=== PATIENT | male | born 1985 | race African-American/Black ===

== ENCOUNTER 2019-11-15 23:07 | Inpatient (IN) | payer SELFPAY ==
[~2019-11-15] VITALS: Ht 185.4 cm; Wt 90.7 kg
[2019-11-15 23:10] VITALS: BP 121/60
[2019-11-15] MEDS ORDERED: propofoL 1,000mg/100ml 100 ML IV ONE (23:36)
[2019-11-15] MEDS ORDERED: levETIRAcetam 500mg/NS100ml 110 ML IV ONE (23:45)
[2019-11-15] MEDS ORDERED: levETIRAcetam 1,000mg/NS100ml 100 ML IVPB ONE (23:45)
[2019-11-15] MEDS ORDERED: propofoL 1,000mg/100ml 100 ML IV SCH (23:45)
[2019-11-16] VITALS (24 sets, daily range): BP systolic 91–148; BP diastolic 51–107
[2019-11-16 00:16] LABS: HEMATOCRIT 42.4 % (42.0-52.0); HEMOGLOBIN 14.8 G/DL (14.2-18.0); MEAN CORPUSCULAR VOLUME 86 FL (80-99); PLATELET COUNT 256 K/UL (150-450); RED CELL DISTRIBUTION WIDTH 11.6 % (11.6-14.8); WHITE BLOOD COUNT 11.6 K/UL (4.8-10.8)
--- NOTE | 2019-11-16 00:22 | Diagnostic Imaging Report ---
Chest 1 view History: Shortness of breath Findings: ET tube tip is within 3 cm of the buffy. Right lower lung infiltrate is seen. Minimal left lower lung infiltrate. Bones are normal. Heart size is normal. Impression: 1. Satisfactory position of the ET tube. 2. Right lower lung infiltrate, pneumonia.
[2019-11-16 00:26] LABS: ANION GAP 12 mmol/L (5-15); BLOOD UREA NITROGEN 13 mg/dL (7-18); CALCIUM 8.3 MG/DL (8.5-10.1); CARBON DIOXIDE 26 MMOL/L (21-32); CHLORIDE 100 MMOL/L (98-107); CREATININE 1.7 MG/DL (0.55-1.30); POTASSIUM 3.5 MMOL/L (3.5-5.1); SODIUM 138 MMOL/L (136-145)
[2019-11-16 00:29] LABS: APPEARANCE,URINE CLEAR; BILIRUBIN, URINE NEGATIVE (NEGATIVE); COLOR,URINE PALE YELLOW; GLUCOSE, URINE (UA) 3+ (NEGATIVE); KETONES,URINE NEGATIVE (NEGATIVE); LEUKOCYTE ESTERASE ,URINE NEGATIVE (NEGATIVE); NITRITE,URINE NEGATIVE (NEGATIVE); PH,URINE 6 (4.5-8.0); PROTEIN,URINE 3+ (NEGATIVE); UROBILINOGEN,URINE NORMAL MG/DL (0.0-1.0)
--- NOTE | 2019-11-16 00:30 | Emergency Room Report ---
History of Present Illness General Chief Complaint: Seizure Source: Patient Present Illness HPI Disclaimer: Please note that this report is being documented using [employer] technology. This can lead to erroneous entry secondary to incorrect interpretation by the dictating instrument. HPI: Approximately 35-year-old male presented by EMS from the street for possible seizure. Patient has unknown history. Apparently was found in a vehicle having seizure-like activity. He was postictal on EMS arrival. On further history from the mother and family patient has a history of HIV unclear if he is on medication. He has no known history of seizures. PMH: Unknown Allergies: Coded Allergies: UNABLE TO ASSESS (Unverified , 11/15/19) COVID-19 Screening Contact w/high risk pt: No Recent Travel to affected area: No Experienced COVID-19 symptoms?: No COVID-19 Testing performed MOBILE QA TESTER: No Nursing Documentation-PMH Past Medical History: No Stated History Review of Systems All Other Systems: limited - Limited as patient arrived altered Physical Exam Vital Signs Date Time Temp Pulse Resp B/P (MAP) Pulse Ox O2 Delivery O2 Flow Rate FiO2 11/15/19 23:08 98.1 106 20 121/60 (80) 98 Room Air Sp02 EP Interpretation: reviewed, abnormal General Appearance: Postictal, Stupor Head: normocephalic, atraumatic Eyes: bilateral eye PERRL, bilateral eye EOMI ENT: moist mucus membranes, other - Anterior tongue laceration noted Neck: full range of motion, supple Respiratory: no rhonchi, no retraction, no accessory muscle use, no wheezing, other - Patient arrived with sonorous respirations Cardiovascular #1: normal peripheral pulses, regular rate, rhythm, no murmur, tachycardia Gastrointestinal: non tender, soft, non-distended, no guarding Neurologic: other - Patient obtunded on arrival, nonverbal, withdraws to pain Skin: normal color, warm/dry Procedures Critical Care Time Critical Care Time Critical care is made on the patient due to presentation with altered mental status, respiratory failure requiring my acute intervention. Critical care time is 40 minutes and excludes procedures Intubation Intubation : Consent: Emergent Intubation Method: orotracheal Tube Size (cm): 7.5 Medications: Succinylcholine Breath Sounds after Intubation: equal Intubation Complications: no complications Post Intubation Xray: Yes Progress/Xray Impression: appropriate position Attempts: Other - 2 Patient Tolerated: Well Complications: None Progress My first attempt with a glide scope was unsuccessful as I had poor visualization. My second attempt was with a MAC 3 blade and a bougie which was successful. Medical Decision Making Diagnostic Impression: Primary Impression: Altered mental status Additional Impressions: Acute respiratory failure Polysubstance abuse Opioid overdose Aspiration pneumonia Seizure-like activity ER Course MDM: Differential diagnosis included but not limited to recurrent seizure, status epilepticus, respiratory failure, intracranial hemorrhage, substance abuse to name a few Clinical course-IV, cardiac monitoring, pulse oximetry, patient did arrive by EMS. Normal glucose prior to arrival. Patient did appear postictal and EMS reported witnessed seizure activity. Unfortunately we do not have history on the patient. After being placed on the gurney. Patient again appeared postictal he is placed on oxygen. He was noted to be hypoxic. We did attempt jaw thrust and chin lift maneuvers which did improve his oxygenation however patient was clenching his jaw and his tongue appeared to be obstructing his airway. He was very difficult to bag and oxygenate. At this time I decided to intubate. While intubating I did note patient had a large tongue. Probably causing obstruction of his airway. He was intubated by me. CT scan of the brain ordered, laboratory studies ordered drug screen ordered. Urine drug screen was positive for cocaine and marijuana. CT scan of the brain was normal. Laboratory studies otherwise demonstrate a mildly elevated lactate, mild leukocytosis. Chest x-ray showed possible right lower lobe infiltrate I suspect possible aspiration pneumonia versus today acquired pneumonia. Patient was afebrile. He was placed on a propofol drip however he remained unresponsive. I had considered opioid overdose in the differential and patient had not been given Narcan prior to arrival to the ER or initially in the ER. I decided to give 1 dose of naloxone which did improve patient's mental status he did wake up and became more alert. Patient was given IV antibiotics for possible right lower lobe pneumonia. He will still be admitted to the ICU. I discussed the case with Dr. Prieto, hospitalist commissioned defence force officer. It appears patient may have been under the influence of multiple substances leading to his altered state, it is unclear if he actually had seizures or this was intoxication. I have a low suspicion for serious traumatic injury at this time as patient had no signs of serious trauma on exam. Labs - Laboratory Tests Test 11/15/19 23:18 11/15/19 23:45 11/16/19 00:10 11/16/19 01:50 White Blood Count 11.6 K/UL (4.8-10.8) H Red Blood Count 4.90 M/UL (4.70-6.10) Hemoglobin 14.8 G/DL (14.2-18.0) Hematocrit 42.4 % (42.0-52.0) Mean Corpuscular Volume 86 FL (80-99) Mean Corpuscular Hemoglobin 30.1 PG (27.0-31.0) Mean Corpuscular Hemoglobin Concent 34.8 G/DL (32.0-36.0) Red Cell Distribution Width 11.6 % (11.6-14.8) Platelet Count 256 K/UL (150-450) Mean Platelet Volume 5.3 FL (6.5-10.1) L Neutrophils (%) (Auto) % (45.0-75.0) Lymphocytes (%) (Auto) % (20.0-45.0) Monocytes (%) (Auto) % (1.0-10.0) Eosinophils (%) (Auto) % (0.0-3.0) Basophils (%) (Auto) % (0.0-2.0) Differential Total Cells Counted 100 Neutrophils % (Manual) 29 % (45-75) L Lymphocytes % (Manual) 54 % (20-45) H Monocytes % (Manual) 6 % (1-10) Eosinophils % (Manual) 11 % (0-3) H Basophils % (Manual) 0 % (0-2) Band Neutrophils 0 % (0-8) Reactive Lymphocytes 1+ Platelet Estimate Adequate Platelet Morphology Normal Sodium Level 138 MMOL/L (136-145) Potassium Level 3.5 MMOL/L (3.5-5.1) Chloride Level 100 MMOL/L (98-107) Carbon Dioxide Level 26 MMOL/L (21-32) Anion Gap 12 mmol/L (5-15) Blood Urea Nitrogen 13 mg/dL (7-18) Creatinine 1.7 MG/DL (0.55-1.30) H Estimated Glomerular Filtration Rate 55.9 mL/min (>60) Glucose Level 288 MG/DL (74-106) H Calcium Level 8.3 MG/DL (8.5-10.1) L Total Bilirubin 0.2 MG/DL (0.2-1.0) Aspartate Amino Transferase (AST) 59 U/L (15-37) H Alanine Aminotransferase (ALT) 38 U/L (12-78) Alkaline Phosphatase 113 U/L (46-116) Total Protein 8.0 G/DL (6.4-8.2) Albumin 3.4 G/DL (3.4-5.0) Globulin 4.6 g/dL Albumin/Globulin Ratio 0.7 (1.0-2.7) L Serum Alcohol < 3 mg/dL Lactic Acid Level 3.40 mmol/L (0.4-2.0) H 0.80 mmol/L (0.66-2.22) Urine Color Pale yellow Urine Appearance Clear Urine pH 6 (4.5-8.0) Urine Specific [place] 1.020 (1.005-1.035) Urine Protein 3+ (NEGATIVE) H Urine Glucose (UA) 3+ (NEGATIVE) H Urine Ketones Negative (NEGATIVE) Urine Blood 3+ (NEGATIVE) H Urine Nitrite Negative (NEGATIVE) Urine Bilirubin Negative (NEGATIVE) Urine Urobilinogen Normal MG/DL (0.0-1.0) Urine Leukocyte Esterase Negative (NEGATIVE) Urine RBC 5-10 /HPF (0 - 0) H Urine WBC 2-4 /HPF (0 - 0) Urine Squamous Epithelial Cells Occasional /LPF Urine Bacteria Few /HPF (NONE) Urine Opiates Screen Negative (NEGATIVE) Urine Barbiturates Screen Negative (NEGATIVE) Phencyclidine (PCP) Screen Negative (NEGATIVE) Urine Amphetamines Screen Negative (NEGATIVE) Urine Benzodiazepines Screen Negative (NEGATIVE) Urine Cocaine Screen Positive (NEGATIVE) H Urine Marijuana (THC) Screen Positive (NEGATIVE) H On reevaluation: Patient more alert and oriented and did require continued sedation in the ER Plan-admission to the ICU EKG Diagnostic Results Rate: tachycardiac Rhythm: other - Sinus tachycardia ST Segments: no acute changes Other Impression sinus tachycardia Rhythm Strip Diag. Results EP Interpretation: yes Rate: 110 Rhythm: other - sinus tachycardia Chest X-Ray Diagnostic Results Chest X-Ray Diagnostic Results : Chest X-Ray Ordered: Yes Indication: Shortness of Breath EP Interpretation: Yes Interpretation: no consolidation, no effusion, no pneumothorax, other - ET tube in appropriate position Impression: No acute disease Electronically Signed by: Michele Lawrence MD Last Vital Signs Date Time Temp Pulse Resp B/P (MAP) Pulse Ox O2 Delivery O2 Flow Rate FiO2 11/15/19 23:08 98.1 106 20 121/60 (80) 98 Room Air Disposition: ADMITTED INPATIENT Condition: Critical Scripts Unable to Obtain Active Prescriptions or Reported Meds Referrals: NOT CHOSEN IPA/,REFERRING (PCP) Michele Lawrence M.D. Nov 16, 2019 00:30
[2019-11-16 00:31] LABS: ALANINE AMINOTRANSFERASE 38 U/L (12-78); ALBUMIN 3.4 G/DL (3.4-5.0); ALBUMIN/GLOBULIN RATIO 0.7 (1.0-2.7); ALKALINE PHOSPHATASE 113 U/L (46-116); ASPARTATE AMINO TRANSFERASE 59 U/L (15-37); BILIRUBIN,TOTAL 0.2 MG/DL (0.2-1.0)
[2019-11-16] MEDS ORDERED: Piperacillin/Tazobactam 4.5 GM in NS 110 ML IVPB ONE (01:15)
--- NOTE | 2019-11-16 01:54 | Diagnostic Imaging Report ---
Axial noncontrast head CT History: Axial noncontrast head CT. CTDI is 53.4 mGy and DLP is 1045.5 mGy-cm. Technique more: One or more of the following dose reduction techniques were used: automated exposure control, adjustment of the mA and/or kV according to patient size, use of iterative reconstruction technique. Comparison: None Findings: Rosales-white matter differentiation is seen to be normal. Ventricles, extra-axial CSF spaces are unremarkable. No acute intracranial hemorrhage mass-effect or edema is seen. Impression: 1. No acute intracranial finding.
[2019-11-16] MEDS ORDERED: Naloxone 0.4mg/ml Inj ONE (02:11)
[2019-11-16] MEDS ORDERED: Naloxone 1mg/ml 2ml IVP ONE (02:15)
[2019-11-16] MEDS ORDERED: Milk of Magnesia 30ml Ud ORAL PRN (02:45)
[2019-11-16] MEDS ORDERED: Naloxone 0.4mg/ml Inj IVP PRN ×2 (02:45→21:00)
[2019-11-16] MEDS ORDERED: Miralax 17gm pkt ORAL PRN (02:45)
[2019-11-16] MEDS ORDERED: LORazepam Inj 2mg/ml 1ml IV PRN ×2 (02:45→21:06)
[2019-11-16] MEDS ORDERED: fentaNYL 2500mcg/NS 250ml 250 ML IV SCH (08:00)
[2019-11-16 08:29] LABS: BASOPHILS % (AUTO) 0.8 % (0.0-2.0); EOSINOPHILS % (AUTO) 3.8 % (0.0-3.0); HEMATOCRIT 36.3 % (42.0-52.0); HEMOGLOBIN 12.5 G/DL (14.2-18.0); MEAN CORPUSCULAR VOLUME 85 FL (80-99); NEUTROPHILS % (AUTO) 66.4 % (45.0-75.0); PLATELET COUNT 241 K/UL (150-450); RED BLOOD COUNT 4.25 M/UL (4.70-6.10); RED CELL DISTRIBUTION WIDTH 11.4 % (11.6-14.8); WHITE BLOOD COUNT 7.3 K/UL (4.8-10.8)
[2019-11-16] MEDS: Heparin 5000 units/ml inj SUBQ SCH ×3 (08:42→21:00)
[2019-11-16] MEDS: Docusate 100mg cap ORAL SCH ×3 (08:42→21:00)
--- NOTE | 2019-11-16 08:56 | Consultation ---
Lurdes Chicas FIRE CONTROL TECHNICIAN B 11/16/19 0856: History of Present Illness General Date patient seen: Nov 16, 2019 Time patient seen: 07:30 Chief Complaint: seizure activity Referring physician: DR Raza Reason for Consultation: acute resp failure, s/p intubation Present Illness HPI 34 years old male with past medical history of HIV was brought by dressing room porter due to possible seizures. Patient was found in the vehicle having seizure-like activity. He was postictal on arrival of paramedics. According to his family patient had a history of IV but unclear he was on any medication no known history of seizures. Upon evaluation patient was afebrile tachycardic pulse oximetry laboratory work-up revealed mild leukocytosis WBC 11.6 stable hemoglobin hematocrit and platelet count. BUN 13, creatinine 1.7. Glucose 288. Lactic acid 3.4 repeated 0.8. AST 59 ALT 38 albumin 3.4. Stable electrolytes. Urinalysis revealed +3 protein +3 glucose no evidence of urinary tract infection urine toxicology screen was positive for cocaine and marijuana. Serum alcohol level was less than 3. CT of the head revealed no acute intracranial pathology. Patient was unresponsive and was intubated for airway protection from the second attempt. Patient received 1 dose of Narcan which somehow improved patient mental status . Chest x-ray after intubation confirmed placement of endotracheal tube and showed right lower lobe infiltrate, likely pneumonia . Patient pancultured ,started on empiric antibiotics . Patient subsequently admitted to ICU for further management Allergies: Coded Allergies: UNABLE TO ASSESS (Unverified , 11/15/19) Medication History Unable to Obtain Active Prescriptions or Reported Meds Patient History History Provided By: Significant Other, Medical Record, EMS Healthcare decision maker Resuscitation status Full code Advanced Directive on File Past Medical/Surgical History Past Medical/Surgical History: (1) HIV (human immunodeficiency virus infection) Review of Systems ROS Narrative unable due to altered mental status Physical Exam General Appearance: other - WD/WN AA male intubated, on vent AC 550-16- 32% PEEP5 Lines, tubes and drains: peripheral, endotracheal tube - in place, intact HEENT: normocephalic, atraumatic, anicteric Neck: supple Respiratory/Chest: lungs clear Abdomen: normal bowel sounds, non tender, soft Extremities: normal capillary refill, no edema Skin Exam: warm/dry, no diaphoresis Neurologic: other - sedated, no gross focal Musculoskeletal: normal muscle bulk Last 24 Hour Vital Signs Date Time Temp Pulse Resp B/P (MAP) Pulse Ox O2 Delivery O2 Flow Rate FiO2 11/16/19 07:00 86 16 96/60 (72) 100 11/16/19 07:00 16 96/60 Mechanical Ventilator 32 11/16/19 06:00 16 110/71 Mechanical Ventilator 32 11/16/19 06:00 83 16 110/71 (84) 100 11/16/19 05:41 88 11/16/19 05:30 Mechanical Ventilator 11/16/19 05:30 32 11/16/19 05:30 88 16 108/71 (83) 99 11/16/19 05:30 16 108/71 Mechanical Ventilator 32 11/16/19 05:15 98.3 90 20 121/79 (93) 99 11/16/19 05:15 16 121/79 Mechanical Ventilator 32 11/16/19 05:00 98.0 94 16 126/72 100 Mechanical Ventilator 32 11/16/19 05:00 98.0 94 16 126/76 98 Mechanical Ventilator 32 11/16/19 04:30 16 128/79 Mechanical Ventilator 32 11/16/19 04:00 98.0 86 17 104/67 100 Mechanical Ventilator 32 11/16/19 04:00 17 104/67 Mechanical Ventilator 32 11/16/19 03:25 85 16 90 11/16/19 03:00 98.2 85 17 105/71 100 Mechanical Ventilator 40 11/16/19 03:00 17 103/70 Mechanical Ventilator 40 11/16/19 02:30 16 111/77 Mechanical Ventilator 40 11/16/19 02:00 98.2 98 17 116/94 100 Mechanical Ventilator 40 11/16/19 01:30 17 116/94 Mechanical Ventilator 40 11/16/19 01:00 17 91/51 Mechanical Ventilator 50 11/16/19 01:00 98.2 110 17 91/51 100 Mechanical Ventilator 50 11/16/19 00:20 17 133/73 Mechanical Ventilator 90 11/16/19 00:00 98.2 115 17 130/78 98 Mechanical Ventilator 50 11/16/19 00:00 17 130/78 Mechanical Ventilator 50 11/15/19 23:45 11 134/77 Mechanical Ventilator 50 11/15/19 23:30 17 90 11/15/19 23:10 106 20 Room Air 11/15/19 23:10 98.1 115 20 121/60 98 Room Air 11/15/19 23:08 98.1 106 20 121/60 (80) 98 Room Air Intake and Output 11/15/19 11/16/19 19:00 07:00 Intake Total 84.575 ml Output Total 500 ml Balance -415.425 ml Intake IV Total 84.575 ml Output Urine Total 500 ml Laboratory Tests Test 11/15/19 23:18 11/15/19 23:45 11/16/19 00:10 11/16/19 01:50 White Blood Count 11.6 K/UL (4.8-10.8) H Red Blood Count 4.90 M/UL (4.70-6.10) Hemoglobin 14.8 G/DL (14.2-18.0) Hematocrit 42.4 % (42.0-52.0) Mean Corpuscular Volume 86 FL (80-99) Mean Corpuscular Hemoglobin 30.1 PG (27.0-31.0) Mean Corpuscular Hemoglobin Concent 34.8 G/DL (32.0-36.0) Red Cell Distribution Width 11.6 % (11.6-14.8) Platelet Count 256 K/UL (150-450) Mean Platelet Volume 5.3 FL (6.5-10.1) L Neutrophils (%) (Auto) % (45.0-75.0) Lymphocytes (%) (Auto) % (20.0-45.0) Monocytes (%) (Auto) % (1.0-10.0) Eosinophils (%) (Auto) % (0.0-3.0) Basophils (%) (Auto) % (0.0-2.0) Differential Total Cells Counted 100 Neutrophils % (Manual) 29 % (45-75) L Lymphocytes % (Manual) 54 % (20-45) H Monocytes % (Manual) 6 % (1-10) Eosinophils % (Manual) 11 % (0-3) H Basophils % (Manual) 0 % (0-2) Band Neutrophils 0 % (0-8) Reactive Lymphocytes 1+ Platelet Estimate Adequate Platelet Morphology Normal Sodium Level 138 MMOL/L (136-145) Potassium Level 3.5 MMOL/L (3.5-5.1) Chloride Level 100 MMOL/L (98-107) Carbon Dioxide Level 26 MMOL/L (21-32) Anion Gap 12 mmol/L (5-15) Blood Urea Nitrogen 13 mg/dL (7-18) Creatinine 1.7 MG/DL (0.55-1.30) H Estimat Glomerular Filtration Rate 55.9 mL/min (>60) Glucose Level 288 MG/DL (74-106) H Calcium Level 8.3 MG/DL (8.5-10.1) L Total Bilirubin 0.2 MG/DL (0.2-1.0) Aspartate Amino Transf (AST/SGOT) 59 U/L (15-37) H Alanine Aminotransferase (ALT/SGPT) 38 U/L (12-78) Alkaline Phosphatase 113 U/L (46-116) Total Protein 8.0 G/DL (6.4-8.2) Albumin 3.4 G/DL (3.4-5.0) Globulin 4.6 g/dL Albumin/Globulin Ratio 0.7 (1.0-2.7) L Serum Alcohol < 3 mg/dL Lactic Acid Level 3.40 mmol/L (0.4-2.0) H 0.80 mmol/L (0.66-2.22) Urine Color Pale yellow Urine Appearance Clear Urine pH 6 (4.5-8.0) Urine Specific [place] 1.020 (1.005-1.035) Urine Protein 3+ (NEGATIVE) H Urine Glucose (UA) 3+ (NEGATIVE) H Urine Ketones Negative (NEGATIVE) Urine Blood 3+ (NEGATIVE) H Urine Nitrite Negative (NEGATIVE) Urine Bilirubin Negative (NEGATIVE) Urine Urobilinogen Normal MG/DL (0.0-1.0) Urine Leukocyte Esterase Negative (NEGATIVE) Urine RBC 5-10 /HPF (0 - 0) H Urine WBC 2-4 /HPF (0 - 0) Urine Squamous Epithelial Cells Occasional /LPF Urine Bacteria Few /HPF (NONE) Urine Opiates Screen Negative (NEGATIVE) Urine Barbiturates Screen Negative (NEGATIVE) Phencyclidine (PCP) Screen Negative (NEGATIVE) Urine Amphetamines Screen Negative (NEGATIVE) Urine Benzodiazepines Screen Negative (NEGATIVE) Urine Cocaine Screen Positive (NEGATIVE) H Urine Marijuana (THC) Screen Positive (NEGATIVE) H Test 11/16/19 07:50 White Blood Count 7.3 K/UL (4.8-10.8) Red Blood Count 4.25 M/UL (4.70-6.10) L Hemoglobin 12.5 G/DL (14.2-18.0) L Hematocrit 36.3 % (42.0-52.0) L Mean Corpuscular Volume 85 FL (80-99) Mean Corpuscular Hemoglobin 29.4 PG (27.0-31.0) Mean Corpuscular Hemoglobin Concent 34.4 G/DL (32.0-36.0) Red Cell Distribution Width 11.4 % (11.6-14.8) L Platelet Count 241 K/UL (150-450) Mean Platelet Volume 5.4 FL (6.5-10.1) L Neutrophils (%) (Auto) 66.4 % (45.0-75.0) Lymphocytes (%) (Auto) 21.0 % (20.0-45.0) Monocytes (%) (Auto) 8.0 % (1.0-10.0) Eosinophils (%) (Auto) 3.8 % (0.0-3.0) H Basophils (%) (Auto) 0.8 % (0.0-2.0) Sodium Level Pending Potassium Level Pending Chloride Level Pending Carbon Dioxide Level Pending Blood Urea Nitrogen Pending Creatinine Pending Estimat Glomerular Filtration Rate Pending Glucose Level Pending Calcium Level Pending Total Bilirubin Pending Aspartate Amino Transf (AST/SGOT) Pending Alanine Aminotransferase (ALT/SGPT) Pending Alkaline Phosphatase Pending Total Protein Pending Albumin Pending Globulin Pending Height (Feet): 6 Height (Inches): 1.00 Weight (Pounds): 197 Medications Current Medications Medications (Trade) Dose Ordered Sig/Tiffani Route PRN Reason Start Time Stop Time Status Last Admin Dose Admin Bisacodyl (Dulcolax) 10 mg DAILYPRN PRN RECTAL Constipation 11/16/19 02:45 02/14/20 02:44 Dextrose (Dextrose 50%) 25 ml Q30M PRN IV Hypoglycemia 11/16/19 02:45 02/14/20 02:44 Dextrose (Dextrose 50%) 50 ml Q30M PRN IV Hypoglycemia 11/16/19 02:45 02/14/20 02:44 Docusate Sodium (Colace) 100 mg EVERY 12 HOURS ORAL 11/16/19 09:00 12/16/19 08:59 Fentanyl Citrate 250 ml @ 0 mls/hr Q24H IV 11/16/19 08:00 02/14/20 07:59 Heparin Sodium (Porcine) (Heparin 5000 units/ml) 5,000 units Q12HR SUBQ 11/16/19 09:00 12/31/19 08:59 Lorazepam (Ativan 2mg/ml 1ml) 0.5 mg Q4H PRN IV For Anxiety 11/16/19 02:45 11/23/19 02:44 Magnesium Hydroxide (Mom) 30 ml HSPRN PRN ORAL Constipation 11/16/19 02:45 12/16/19 02:44 Naloxone HCl (Narcan) 0.4 mg Q3M PRN IVP RR less than 6/min 11/16/19 02:45 02/14/20 02:44 Pantoprazole (Protonix) 40 mg DAILY IVP 11/16/19 09:00 12/16/19 08:59 Polyethylene Glycol (Miralax) 17 gm DAILYPRN PRN ORAL Constipation 11/16/19 02:45 12/16/19 02:44 Propofol 100 ml @ 0 mls/hr Q24H IV 11/15/19 23:45 11/17/19 23:44 11/16/19 00:20 Sodium Chloride 1,000 ml @ 75 mls/hr [id number] IV 11/16/19 06:00 12/16/19 05:59 11/16/19 06:19 Assessment/Plan Assessment/Plan: ASSESSMENT Acute respiratory failure requiring intubation Acute toxic metabolic encephalopathy likely due to drug overdose New onset of seizure disorder likely due to drug overdose Suspected COVID-19 infection Pneumonia ELIDA HIV Substance abuse Elevated AST PLAN OF CARE ICU vent support isolation fup with CXR and ABG in am optimize vent settings as needed weaning protocol soon when ready sedation with Propofol empiric abx/Zosyn fup with SCX and BCX fup with SARS COV2 by PCR leuk resolved already, afebrile seizure precautions on Keppra, seizure episode likely was provoked by drug OD IVF, monitor renal parameters, lytes, correct lytes as needed avoid nephrotoxics trend LFT DVT, GI prophylaxis incomplete data base in regards to HAART therapy, unclear if on any will check lymphocyte subset supportive care case discussed and evaluated by supervising physician Mumtaz Thomas MD 11/16/19 1136: History of Present Illness General Chief Complaint: seizure activity Present Illness Allergies: Coded Allergies: UNABLE TO ASSESS (Unverified , 11/15/19) Medication History Unable to Obtain Active Prescriptions or Reported Meds Assessment/Plan Status: stable Assessment/Plan: Patient seen and examined with FIRE CONTROL TECHNICIAN B, agree with above A&P as it reflects our joint deliberations. VDRF Sz Stevie/MJ use Asp PNA HIV --> Reynold SBT, awake, can protect airway, no sig secretions, RSBI < 100 -----> EXTUBATE --> Start Keppra, PRN ativan, monitor for further Sz's, EEG, consider neuro eval (Dr. Arnold called neuro who is unavailable?), Sz precautions --> Monitor for w/draw, MVI/thiamine/Folate, consider psych and SW eval --> Zosyn D2, F/U Cx's --> mIVF --> Check VL and CD4 ct --> DVT Px: Hep SQ --> Post-extubation RN bedside swallow, if ok can advance diet, formal INSTRUCTOR KNITTING eval sunday --> FC ---> CCT 90 Lurdes Chicas NP Nov 16, 2019 08:56 Mumtaz Thomas MD Nov 16, 2019 11:36
[2019-11-16] MEDS ORDERED: Pantoprazole Inj IVP SCH (09:00)
[2019-11-16] MEDS ORDERED: Heparin 5000 units/ml inj SUBQ SCH (09:00)
[2019-11-16 09:16] LABS: ANION GAP 6 mmol/L (5-15); BLOOD UREA NITROGEN 13 mg/dL (7-18); CALCIUM 7.7 MG/DL (8.5-10.1); CARBON DIOXIDE 27 MMOL/L (21-32); CHLORIDE 106 MMOL/L (98-107); CREATININE 1.4 MG/DL (0.55-1.30); POTASSIUM 4.9 MMOL/L (3.5-5.1); SODIUM 139 MMOL/L (136-145)
[2019-11-16 09:28] LABS: ALANINE AMINOTRANSFERASE 36 U/L (12-78); ALBUMIN/GLOBULIN RATIO 0.8 (1.0-2.7); ALKALINE PHOSPHATASE 89 U/L (46-116); ASPARTATE AMINO TRANSFERASE 60 U/L (15-37); BILIRUBIN,TOTAL 0.3 MG/DL (0.2-1.0)
[2019-11-16] MEDS ORDERED: levETIRAcetam 1,500 MG in D5W 95 ML IV SCH (13:00)
[2019-11-16] MEDS ORDERED: Succinylcholine 20mg/ml 10ml vial ONE (13:40)
[2019-11-16] MEDS ORDERED: Piperacillin/Tazobactam 3.375 GM in NS 110 ML IVPB SCH (14:00)
--- NOTE | 2019-11-16 15:24 | History and Physical ---
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 Per EMS, pt found in vehicle with seizure activity, was confused upon presentation, history limited. Per ED, mom states on has no known hx of seizures. In the ED, pt noted to be hypoxic, confused, tongue appears to be obstructing airways there was intubated. CT brain was unremarkable, Urine tox positive for coccaine and marijuana, lactate elevated, and chest xray with RLL infiltrate. Pt also received Narcan with improvement in mental status. IV antibiotics and propofol started and pt admitted to MICU for further management , Allergies: Coded Allergies: UNABLE TO ASSESS (Unverified , 11/15/19) COVID-19 Screening Contact w/high risk pt: No Recent Travel to affected area: No Experienced COVID-19 symptoms?: No Medication History Unable to Obtain Active Prescriptions or Reported Meds Patient History Limited by: medical condition History Provided By: Family Member, Medical Record, EMS Healthcare decision maker Resuscitation status Advanced Directive on File Review of Systems ROS Narrative Unable to assess 2/2 intubated and sedated Physical Exam General Appearance: no apparent distress Lines, tubes and drains: endotracheal tube Neck: normal alignment Respiratory/Chest: lungs clear Cardiovascular/Chest: normal rate, regular rhythm Abdomen: soft, no organomegaly Extremities: normal inspection Skin Exam: normal pigmentation Neurologic: other - sedated, unable to assess Last 24 Hour Vital Signs Date Time Temp Pulse Resp B/P (MAP) Pulse Ox O2 Delivery O2 Flow Rate FiO2 11/16/19 14:00 93 17 126/78 (94) 99 11/16/19 13:00 95 18 130/68 (88) 99 11/16/19 12:00 100 11/16/19 12:00 95 19 118/60 (79) 99 11/16/19 11:00 98 18 129/76 (93) 99 11/16/19 10:00 85 15 121/70 (87) 99 11/16/19 09:00 87 16 122/79 (93) 100 11/16/19 09:00 19 122/79 Mechanical Ventilator 32 11/16/19 08:30 18 124/70 Mechanical Ventilator 32 11/16/19 08:15 16 125/72 Mechanical Ventilator 32 11/16/19 08:00 Mechanical Ventilator 11/16/19 08:00 17 118/57 Mechanical Ventilator 32 11/16/19 08:00 98.3 86 16 118/57 (77) 100 11/16/19 07:00 86 16 96/60 (72) 100 11/16/19 07:00 16 96/60 Mechanical Ventilator 32 11/16/19 06:00 16 110/71 Mechanical Ventilator 32 11/16/19 06:00 83 16 110/71 (84) 100 11/16/19 05:41 88 11/16/19 05:30 Mechanical Ventilator 11/16/19 05:30 32 11/16/19 05:30 88 16 108/71 (83) 99 11/16/19 05:30 16 108/71 Mechanical Ventilator 32 11/16/19 05:15 98.3 90 20 121/79 (93) 99 11/16/19 05:15 16 121/79 Mechanical Ventilator 32 11/16/19 05:00 98.0 94 16 126/72 100 Mechanical Ventilator 32 11/16/19 05:00 98.0 94 16 126/76 98 Mechanical Ventilator 32 11/16/19 04:30 16 128/79 Mechanical Ventilator 32 11/16/19 04:00 98.0 86 17 104/67 100 Mechanical Ventilator 32 11/16/19 04:00 17 104/67 Mechanical Ventilator 32 11/16/19 03:25 85 16 90 11/16/19 03:00 98.2 85 17 105/71 100 Mechanical Ventilator 40 11/16/19 03:00 17 103/70 Mechanical Ventilator 40 11/16/19 02:30 16 111/77 Mechanical Ventilator 40 11/16/19 02:00 98.2 98 17 116/94 100 Mechanical Ventilator 40 11/16/19 01:30 17 116/94 Mechanical Ventilator 40 11/16/19 01:00 17 91/51 Mechanical Ventilator 50 11/16/19 01:00 98.2 110 17 91/51 100 Mechanical Ventilator 50 11/16/19 00:20 17 133/73 Mechanical Ventilator 90 11/16/19 00:00 98.2 115 17 130/78 98 Mechanical Ventilator 50 11/16/19 00:00 17 130/78 Mechanical Ventilator 50 11/15/19 23:45 11 134/77 Mechanical Ventilator 50 11/15/19 23:30 17 90 11/15/19 23:10 106 20 Room Air 6/6/20 23:10 98.1 115 20 121/60 98 Room Air 11/15/19 23:08 98.1 106 20 121/60 (80) 98 Room Air Intake and Output 11/15/19 11/16/19 19:00 07:00 Intake Total 84.575 ml Output Total 500 ml Balance -415.425 ml Intake IV Total 84.575 ml Output Urine Total 500 ml Laboratory Tests Test 11/15/19 23:18 11/15/19 23:45 11/16/19 00:10 11/16/19 01:50 White Blood Count 11.6 K/UL (4.8-10.8) H Red Blood Count 4.90 M/UL (4.70-6.10) Hemoglobin 14.8 G/DL (14.2-18.0) Hematocrit 42.4 % (42.0-52.0) Mean Corpuscular Volume 86 FL (80-99) Mean Corpuscular Hemoglobin 30.1 PG (27.0-31.0) Mean Corpuscular Hemoglobin Concent 34.8 G/DL (32.0-36.0) Red Cell Distribution Width 11.6 % (11.6-14.8) Platelet Count 256 K/UL (150-450) Mean Platelet Volume 5.3 FL (6.5-10.1) L Neutrophils (%) (Auto) % (45.0-75.0) Lymphocytes (%) (Auto) % (20.0-45.0) Monocytes (%) (Auto) % (1.0-10.0) Eosinophils (%) (Auto) % (0.0-3.0) Basophils (%) (Auto) % (0.0-2.0) Differential Total Cells Counted 100 Neutrophils % (Manual) 29 % (45-75) L Lymphocytes % (Manual) 54 % (20-45) H Monocytes % (Manual) 6 % (1-10) Eosinophils % (Manual) 11 % (0-3) H Basophils % (Manual) 0 % (0-2) Band Neutrophils 0 % (0-8) Reactive Lymphocytes 1+ Platelet Estimate Adequate Platelet Morphology Normal Sodium Level 138 MMOL/L (136-145) Potassium Level 3.5 MMOL/L (3.5-5.1) Chloride Level 100 MMOL/L (98-107) Carbon Dioxide Level 26 MMOL/L (21-32) Anion Gap 12 mmol/L (5-15) Blood Urea Nitrogen 13 mg/dL (7-18) Creatinine 1.7 MG/DL (0.55-1.30) H Estimat Glomerular Filtration Rate 55.9 mL/min (>60) Glucose Level 288 MG/DL (74-106) H Calcium Level 8.3 MG/DL (8.5-10.1) L Total Bilirubin 0.2 MG/DL (0.2-1.0) Aspartate Amino Transf (AST/SGOT) 59 U/L (15-37) H Alanine Aminotransferase (ALT/SGPT) 38 U/L (12-78) Alkaline Phosphatase 113 U/L (46-116) Total Protein 8.0 G/DL (6.4-8.2) Albumin 3.4 G/DL (3.4-5.0) Globulin 4.6 g/dL Albumin/Globulin Ratio 0.7 (1.0-2.7) L Serum Alcohol < 3 mg/dL Lactic Acid Level 3.40 mmol/L (0.4-2.0) H 0.80 mmol/L (0.66-2.22) Urine Color Pale yellow Urine Appearance Clear Urine pH 6 (4.5-8.0) Urine Specific [place] 1.020 (1.005-1.035) Urine Protein 3+ (NEGATIVE) H Urine Glucose (UA) 3+ (NEGATIVE) H Urine Ketones Negative (NEGATIVE) Urine Blood 3+ (NEGATIVE) H Urine Nitrite Negative (NEGATIVE) Urine Bilirubin Negative (NEGATIVE) Urine Urobilinogen Normal MG/DL (0.0-1.0) Urine Leukocyte Esterase Negative (NEGATIVE) Urine RBC 5-10 /HPF (0 - 0) H Urine WBC 2-4 /HPF (0 - 0) Urine Squamous Epithelial Cells Occasional /LPF Urine Bacteria Few /HPF (NONE) Urine Opiates Screen Negative (NEGATIVE) Urine Barbiturates Screen Negative (NEGATIVE) Phencyclidine (PCP) Screen Negative (NEGATIVE) Urine Amphetamines Screen Negative (NEGATIVE) Urine Benzodiazepines Screen Negative (NEGATIVE) Urine Cocaine Screen Positive (NEGATIVE) H Urine Marijuana (THC) Screen Positive (NEGATIVE) H Test 11/16/19 07:50 11/16/19 08:54 White Blood Count 7.3 K/UL (4.8-10.8) Red Blood Count 4.25 M/UL (4.70-6.10) L Hemoglobin 12.5 G/DL (14.2-18.0) L Hematocrit 36.3 % (42.0-52.0) L Mean Corpuscular Volume 85 FL (80-99) Mean Corpuscular Hemoglobin 29.4 PG (27.0-31.0) Mean Corpuscular Hemoglobin Concent 34.4 G/DL (32.0-36.0) Red Cell Distribution Width 11.4 % (11.6-14.8) L Platelet Count 241 K/UL (150-450) Mean Platelet Volume 5.4 FL (6.5-10.1) L Neutrophils (%) (Auto) 66.4 % (45.0-75.0) Lymphocytes (%) (Auto) 21.0 % (20.0-45.0) Monocytes (%) (Auto) 8.0 % (1.0-10.0) Eosinophils (%) (Auto) 3.8 % (0.0-3.0) H Basophils (%) (Auto) 0.8 % (0.0-2.0) Sodium Level 139 MMOL/L (136-145) Potassium Level 4.9 MMOL/L (3.5-5.1) Chloride Level 106 MMOL/L (98-107) Carbon Dioxide Level 27 MMOL/L (21-32) Anion Gap 6 mmol/L (5-15) Blood Urea Nitrogen 13 mg/dL (7-18) Creatinine 1.4 MG/DL (0.55-1.30) H Estimat Glomerular Filtration Rate > 60 mL/min (>60) Glucose Level 98 MG/DL (74-106) # Calcium Level 7.7 MG/DL (8.5-10.1) L Total Bilirubin 0.3 MG/DL (0.2-1.0) Aspartate Amino Transf (AST/SGOT) 60 U/L (15-37) H Alanine Aminotransferase (ALT/SGPT) 36 U/L (12-78) Alkaline Phosphatase 89 U/L (46-116) Total Protein 6.8 G/DL (6.4-8.2) Albumin 3.0 G/DL (3.4-5.0) L Globulin 3.8 g/dL Albumin/Globulin Ratio 0.8 (1.0-2.7) L Arterial Blood pH 7.389 (7.350-7.450) Arterial Blood Partial Pressure CO2 41.8 mmHg (35.0-45.0) Arterial Blood Partial Pressure O2 102.0 mmHg (75.0-100.0) H Arterial Blood HCO3 24.7 mmol/L (22.0-26.0) Arterial Blood Oxygen Saturation 97.2 % (95-100) Arterial Blood Base Excess -0.3 (-2-2) Jonny Test Positive Height (Feet): 6 Height (Inches): 1.00 Weight (Pounds): 197 Medications Current Medications Medications (Trade) Dose Ordered Sig/Tiffani Route PRN Reason Start Time Stop Time Status Last Admin Dose Admin Bisacodyl (Dulcolax) 10 mg DAILYPRN PRN RECTAL Constipation 11/16/19 02:45 02/14/20 02:44 Dextrose (Dextrose 50%) 25 ml Q30M PRN IV Hypoglycemia 11/16/19 02:45 02/14/20 02:44 Dextrose (Dextrose 50%) 50 ml Q30M PRN IV Hypoglycemia 11/16/19 02:45 02/14/20 02:44 Docusate Sodium (Colace) 100 mg EVERY 12 HOURS ORAL 11/16/19 09:00 12/16/19 08:59 Fentanyl Citrate 250 ml @ 0 mls/hr Q24H IV 11/16/19 08:00 02/14/20 07:59 Folic Acid (Folate) 1 mg DAILY ORAL 11/17/19 09:00 12/17/19 08:59 Heparin Sodium (Porcine) (Heparin 5000 units/ml) 5,000 units Q12HR SUBQ 11/16/19 09:00 12/31/19 08:59 11/16/19 08:42 Levetiracetam 1500 mg/Dextrose 110 ml @ 440 mls/hr Q12H IV 11/16/19 13:00 12/16/19 12:59 11/16/19 13:46 Lorazepam (Ativan 2mg/ml 1ml) 0.5 mg Q4H PRN IV For Anxiety 11/16/19 02:45 11/23/19 02:44 Magnesium Hydroxide (Mom) 30 ml HSPRN PRN ORAL Constipation 11/16/19 02:45 12/16/19 02:44 Multivitamins (Multivitamins) 1 tab DAILY ORAL 11/17/19 09:00 12/17/19 08:59 Naloxone HCl (Narcan) 0.4 mg Q3M PRN IVP RR less than 6/min 11/16/19 02:45 02/14/20 02:44 Pantoprazole (Protonix) 40 mg DAILY IVP 11/16/19 09:00 12/16/19 08:59 11/16/19 08:41 Piperacillin Sod/ Tazobactam Sod 3.375 gm/Sodium Chloride 110 ml @ 27.5 mls/hr Q8HR IVPB 11/16/19 14:00 11/23/19 13:59 11/16/19 13:46 Polyethylene Glycol (Miralax) 17 gm DAILYPRN PRN ORAL Constipation 11/16/19 02:45 12/16/19 02:44 Propofol 100 ml @ 0 mls/hr Q24H IV 11/15/19 23:45 11/17/19 23:44 11/16/19 00:20 Sodium Chloride 1,000 ml @ 75 mls/hr [id number] IV 11/16/19 06:00 12/16/19 05:59 11/16/19 06:19 Thiamine HCl (Vitamin B1) 100 mg DAILY ORAL 11/17/19 09:00 12/17/19 08:59 Assessment/Plan Status: progressing Assessment/Plan: 34 year old M with PMH of HIV (unknown CD4 or viral load) BIBEMS for seizurelike activity admitted to MICU for AFC requiring intubation and aspiration PNA. #Acute respiratory failure s/p intubation #RLL pneumonia likely Aspiration -COnt AC/VC -Pulm/Crit consult appreciated - Dr. Thomas -Weaning per pulmonary - likely extubate today -If extubated will need bedside swallow eval and formal eval on sunday -ABG PRN -Cont Zosyn -f/u cultures #?Seizures -s/p keppra load -Cont keppra -PRN ativan -EEG pending -neurology consult in AM -seizure precautions #HIV -CD4/VL pending -restart HAART once verified #Cocaine and marijuana use -SW consult -consider psych consult if needed Dispo: home Reason for Continued Hospitalization: ams. ARF 75 minutes spent on this encounter. Discussed with RN at bedside and consultants named above. 27 spent on counseling and care coordination. In additional 35 min in addition to the usual care above I spent additional time reviewing records in the EMR including physician documentation, nursing documentation, laboratory results, imaging and other clinical documentation. Time of note may not reflect time patient was seen. Kim Arnold MD Nov 16, 2019 15:24
[2019-11-16] MEDS: Piperacillin/Tazobactam 3.375 GM in NS 110 ML IVPB SCH (21:32)
[2019-11-17] VITALS: BP 120/74
[2019-11-17] MEDS: levETIRAcetam 1,500 MG in D5W 95 ML IV SCH ×2 (01:00→13:22)
[2019-11-17] MEDS ORDERED: Milk of Magnesia 30ml Ud ORAL PRN (02:45)
[2019-11-17] MEDS ORDERED: Miralax 17gm pkt ORAL PRN (02:45)
[2019-11-17 04:00] VITALS: BP 113/70
[2019-11-17] MEDS: Piperacillin/Tazobactam 3.375 GM in NS 110 ML IVPB SCH ×3 (05:11→20:47)
[2019-11-17 08:00] VITALS: BP 144/75
[2019-11-17] MEDS ORDERED: fentaNYL 2500mcg/NS 250ml 250 ML IV SCH (08:00)
[2019-11-17 08:41] LABS: BASOPHILS % (AUTO) 0.8 % (0.0-2.0); HEMATOCRIT 36.9 % (42.0-52.0); HEMOGLOBIN 12.9 G/DL (14.2-18.0); MEAN CORPUSCULAR VOLUME 84 FL (80-99); MONOCYTES % (AUTO) 5.3 % (1.0-10.0); PLATELET COUNT 245 K/UL (150-450); RED BLOOD COUNT 4.37 M/UL (4.70-6.10); RED CELL DISTRIBUTION WIDTH 11.5 % (11.6-14.8); WHITE BLOOD COUNT 7.3 K/UL (4.8-10.8)
--- NOTE | 2019-11-17 08:57 | Pulmonology Progress Note ---
Lurdes Chicas [employer] 11/17/19 0857: Subjective Allergies: Coded Allergies: UNABLE TO ASSESS (Unverified , 11/15/19) Subjective extubated in tele pulse ox stable on RA no SOB, no CP no further seizure activity Objective Last 24 Hour Vital Signs Date Time Temp Pulse Resp B/P (MAP) Pulse Ox O2 Delivery O2 Flow Rate FiO2 11/17/19 04:00 1.0 11/17/19 04:00 99.9 91 19 113/70 (84) 96 11/17/19 04:00 94 11/17/19 04:00 Nasal Cannula 1.0 Nasal Cannula 1.0 11/17/19 00:00 Nasal Cannula 1.0 Nasal Cannula 1.0 11/17/19 00:00 98.6 103 20 120/74 (89) 95 11/17/19 00:00 1.0 11/17/19 00:00 105 11/16/19 21:00 99.3 94 20 121/72 (88) 99 11/16/19 20:00 89 11/16/19 20:00 98.9 99 20 138/93 (108) 100 11/16/19 20:00 3.0 11/16/19 20:00 Nasal Cannula 3.0 Nasal Cannula 3.0 11/16/19 19:00 92 17 134/86 (102) 100 11/16/19 18:00 98 20 148/107 (121) 100 11/16/19 17:00 93 16 110/60 (77) 99 11/16/19 16:00 96 21 121/64 (83) 99 11/16/19 16:00 Nasal Cannula 3.0 11/16/19 16:00 3.0 11/16/19 16:00 99 11/16/19 16:00 98.0 96 21 121/64 (83) 99 11/16/19 15:00 97 20 128/60 (82) 99 11/16/19 14:00 93 17 126/78 (94) 99 11/16/19 13:00 95 18 130/68 (88) 99 11/16/19 12:00 98.2 95 19 118/60 (79) 99 11/16/19 12:00 Nasal Cannula 3.0 11/16/19 12:00 100 11/16/19 12:00 95 19 118/60 (79) 99 11/16/19 11:40 Nasal Cannula 3.0 32 11/16/19 11:40 3.0 11/16/19 11:00 98 18 129/76 (93) 99 11/16/19 10:00 85 15 121/70 (87) 99 11/16/19 09:00 87 16 122/79 (93) 100 11/16/19 09:00 19 122/79 Mechanical Ventilator 32 Intake and Output 11/16/19 11/17/19 19:00 07:00 Intake Total 1632.925 ml 70 ml Output Total 800 ml 100 ml Balance 832.925 ml -30 ml Intake Oral 500 ml 40 ml IV Total 1132.925 ml 30 ml Output Urine Total 800 ml Emesis 100 ml # Voids 4 Objective General Appearance: WD/WN AA male Lines, tubes and drains: peripheral, intact HEENT: normocephalic, atraumatic, anicteric Neck: supple Respiratory/Chest: few isolated rhonchi Abdomen: normal bowel sounds, non tender, soft Extremities: normal capillary refill, no edema Skin Exam: warm/dry, no diaphoresis Neurologic: no gross focal Musculoskeletal: normal muscle bulk Microbiology Date/Time Source Procedure Growth Status 11/15/19 23:45 Blood Blood Culture - Preliminary NO GROWTH AFTER 24 HOURS Resulted 11/15/19 23:30 Blood Blood Culture - Preliminary NO GROWTH AFTER 24 HOURS Resulted Laboratory Tests 11/17/19 08:05: White Blood Count [Pending], Red Blood Count 4.37L, Hemoglobin 12.9L, Hematocrit 36.9L, Mean Corpuscular Volume 84, Mean Corpuscular Hemoglobin 29.6, Mean Corpuscular Hemoglobin Concent 35.1, Red Cell Distribution Width 11.5L, Platelet Count 245, Mean Platelet Volume 5.6L, Neutrophils (%) (Auto) 70.0, Lymphocytes (%) (Auto) 15.0L, Monocytes (%) (Auto) 5.3, Eosinophils (%) (Auto) 9.0H, Basophils (%) (Auto) 0.8, Lymphocytes [Pending], Percent CD3 Cells [ Pending], Absolute CD3 Count [Pending], Percent CD4 Cells [Pending], Absolute CD4 Count [Pending], T-Lymphocyte CD4/CD8 Ratio [Pending], Percent CD8 Cells [ Pending], Absolute CD8 Count [Pending] Current Medications Medications (Trade) Dose Ordered Sig/Tiffani Route PRN Reason Start Time Stop Time Status Last Admin Dose Admin Bisacodyl (Dulcolax) 10 mg DAILYPRN PRN RECTAL Constipation 11/17/19 02:45 02/14/20 02:44 Dextrose (Dextrose 50%) 25 ml Q30M PRN IV Hypoglycemia 11/16/19 21:15 02/14/20 02:44 Dextrose (Dextrose 50%) 50 ml Q30M PRN IV Hypoglycemia 11/16/19 21:15 02/14/20 02:44 Docusate Sodium (Colace) 100 mg EVERY 12 HOURS ORAL 11/16/19 21:00 12/16/19 08:59 Folic Acid (Folate) 1 mg DAILY ORAL 11/17/19 09:00 12/17/19 08:59 Heparin Sodium (Porcine) (Heparin 5000 units/ml) 5,000 units Q12HR SUBQ 11/16/19 21:00 12/31/19 08:59 Levetiracetam 1500 mg/Dextrose 110 ml @ 440 mls/hr Q12H IV 11/17/19 01:00 12/16/19 12:59 11/17/19 01:00 Lorazepam (Ativan 2mg/ml 1ml) 0.5 mg Q4H PRN IV For Anxiety 11/16/19 21:06 11/23/19 21:05 Magnesium Hydroxide (Mom) 30 ml HSPRN PRN ORAL Constipation 11/17/19 02:45 12/16/19 02:44 Multivitamins (Multivitamins) 1 tab DAILY ORAL 11/17/19 09:00 12/17/19 08:59 Naloxone HCl (Narcan) 0.4 mg Q3M PRN IVP RR less than 6/min 11/16/19 21:00 02/14/20 02:44 Ondansetron HCl (Zofran) 4 mg Q6H PRN IVP Nausea & Vomiting 11/17/19 05:30 12/17/19 05:29 11/17/19 05:45 Pantoprazole (Protonix) 40 mg DAILY IVP 11/17/19 09:00 12/16/19 08:59 Piperacillin Sod/ Tazobactam Sod 3.375 gm/Sodium Chloride 110 ml @ 27.5 mls/hr Q8HR IVPB 11/16/19 22:00 11/23/19 13:59 11/17/19 05:11 Polyethylene Glycol (Miralax) 17 gm DAILYPRN PRN ORAL Constipation 11/17/19 02:45 12/16/19 02:44 Sodium Chloride 1,000 ml @ 75 mls/hr [id number] IV 11/16/19 21:00 12/16/19 05:59 Thiamine HCl (Vitamin B1) 100 mg DAILY ORAL 11/17/19 09:00 12/17/19 08:59 Assessment/Plan Assessment/Plan ASSESSMENT Acute respiratory failure requiring intubation, s/p extubation Acute toxic metabolic encephalopathy likely due to drug overdose New onset of seizure disorder likely due to drug overdose Suspected COVID-19 infection Aspiration pneumonia ELIDA HIV Substance abuse Elevated AST PLAN OF CARE tele s/p extubation 11/15 supplemetnal O2 titrate to keep sat > 90%, pulm toilet isolation for now fup with CXR this am empiric abx/Zosyn fup with SCX, BCX 11/14 NGTD fup with SARS COV2 by PCR leuk resolved already, afebrile seizure precautions on Keppra, seizure episode likely was provoked by drug OD no further seizure activity w/drawal precautions MVI/thiamine/ folic acid anxiolytic prn aspiration precautions BSSE this am IVF, monitor renal parameters, lytes, correct lytes as needed avoid nephrotoxics , creat trending down trend LFT DVT, GI prophylaxis diagnosed with HIV last e year; never was on any HAART therapy will check CD4 , VL will need to f/up with [facility] to start treatment supportive care case discussed and evaluated by supervising physician Vickey Castellanos MD 11/17/19 1551: Subjective Allergies: Coded Allergies: UNABLE TO ASSESS (Unverified , 11/15/19) Assessment/Plan Assessment/Plan atient seen and examined with [employer]. Agree with above A&P as it reflects our joint deliberations Lurdes Chicas [employer] Nov 17, 2019 08:57 Vickey Castellanos MD Nov 17, 2019 15:51
[2019-11-17] MEDS ORDERED: Thiamine 100mg tab ORAL SCH (09:00)
[2019-11-17] MEDS: Pantoprazole Inj IVP SCH (10:18)
[2019-11-17] MEDS: Docusate 100mg cap ORAL SCH ×2 (10:18→20:45)
[2019-11-17] MEDS: Thiamine 100mg tab ORAL SCH (10:18)
[2019-11-17] MEDS: Heparin 5000 units/ml inj SUBQ SCH ×2 (10:19→20:46)
[2019-11-17 12:00] VITALS: BP 133/86
--- NOTE | 2019-11-17 12:56 | General Progress Note ---
Assessment/Plan Problem List: (1) Aspiration pneumonia ICD Codes: J69.0 - Pneumonitis due to inhalation of food and vomit SNOMED: 110931060 (2) Seizures ICD Codes: R56.9 - Unspecified convulsions SNOMED: 26602305 (3) Polysubstance abuse ICD Codes: F19.10 - Other psychoactive substance abuse, uncomplicated SNOMED: 850960986 (4) Opioid overdose ICD Codes: T40.2X1A - Poisoning by other opioids, accidental (unintentional), initial encounter SNOMED: 708116901 (5) Seizure-like activity ICD Codes: R56.9 - Unspecified convulsions SNOMED: 413214792 (6) HIV (human immunodeficiency virus infection) ICD Codes: B20 - Human immunodeficiency virus [HIV] disease SNOMED: 21952931 (7) Altered mental status ICD Codes: R41.82 - Altered mental status, unspecified SNOMED: 962860088 (8) Acute respiratory failure ICD Codes: J96.00 - Acute respiratory failure, unspecified whether with hypoxia or hypercapnia SNOMED: 30089314 Status: stable, progressing Assessment/Plan: 34 year old M with PMH of HIV (unknown CD4 or viral load) BIBEMS for seizurelike activity admitted to MICU for AFC requiring intubation and aspiration PNA. #Acute respiratory failure s/p intubation #RLL pneumonia likely Aspiration -s/p extubation 11/15. -Pulm following. appreciate recs. -Diet started -Cont Zosyn (11/15 -) -f/u cultures, BCx NGTD. -wean off O2. #?Seizures -s/p keppra load -Cont keppra -EEG pending -neurology consult in AM -seizure precautions #HIV -CD4/VL pending -restart HAART once verified #Cocaine and marijuana use -SW consult -thiamine. -consider psych consult if needed #ELIDA -improving. -continue NS at 75mL/hr. -continue PO intake. Dispo: home Reason for Continued Hospitalization: ams. ARF 36 minutes spent on this encounter. Discussed with RN at bedside and consultants named above. 25 spent on counseling and care coordination. In additional 35 min in addition to the usual care above I spent additional time reviewing records in the EMR including physician documentation, nursing documentation, laboratory results, imaging and other clinical documentation. Time of note may not reflect time patient was seen. Subjective Date patient seen: Nov 17, 2019 Time patient seen: 12:00 ROS Limited/Unobtainable: No Constitutional: Denies: no symptoms, chills, diaphoresis, fever, malaise, weakness, other HEENT: Denies: no symptoms, eye pain, blurred vision, tearing, double vision, ear pain, ear discharge, nose pain, nose congestion, throat pain, throat swelling, mouth pain, mouth swelling, other Cardiovascular: Denies: no symptoms, chest pain, edema, irregular heart rate, lightheadedness, palpitations, syncope, other Respiratory: Reports: no symptoms, cough, orthopnea, shortness of breath, SOB with excertion, SOB at rest, sputum, stridor, wheezing, other - mild cough, no SOB Gastrointestinal/Abdominal: Denies: no symptoms, abdomen distended, abdominal pain, black stools, tarry stools, blood in stool, constipated, diarrhea, difficulty swallowing, nausea, poor appetite, poor fluid intake, rectal bleeding , vomiting, other Genitourinary: Denies: no symptoms, burning, discharge, frequency, flank pain, hematuria, incontinence, pain, urgency, other Neurologic/Psychiatric: Denies: no symptoms, anxiety, depressed, emotional problems, headache, numbness, paresthesia, pre-existing deficit, seizure, tingling, tremors, weakness, other Endocrine: Denies: no symptoms, excessive sweating, flushing, intolerance to cold, intolerance to heat, increased hunger, increased thirst, increased urine, unexplained weight gain, unexplained weight loss, other Hematologic/Lymphatic: Denies: no symptoms, anemia, easy bleeding, easy bruising, other Allergies: Coded Allergies: UNABLE TO ASSESS (Unverified , 11/15/19) Subjective resting in bed, hoarse voice, throat pain, but otherwise feels well. Objective Last 24 Hour Vital Signs Date Time Temp Pulse Resp B/P (MAP) Pulse Ox O2 Delivery O2 Flow Rate FiO2 11/17/19 11:49 1.0 11/17/19 08:00 98.1 101 20 144/75 (98) 94 11/17/19 08:00 Nasal Cannula 1.0 Nasal Cannula 1.0 11/17/19 04:00 1.0 11/17/19 04:00 99.9 91 19 113/70 (84) 96 11/17/19 04:00 94 11/17/19 04:00 Nasal Cannula 1.0 Nasal Cannula 1.0 11/17/19 00:00 Nasal Cannula 1.0 Nasal Cannula 1.0 11/17/19 00:00 98.6 103 20 120/74 (89) 95 11/17/19 00:00 1.0 11/17/19 00:00 105 11/16/19 21:00 99.3 94 20 121/72 (88) 99 11/16/19 20:00 89 11/16/19 20:00 98.9 99 20 138/93 (108) 100 11/16/19 20:00 3.0 11/16/19 20:00 Nasal Cannula 3.0 Nasal Cannula 3.0 11/16/19 19:00 92 17 134/86 (102) 100 11/16/19 18:00 98 20 148/107 (121) 100 11/16/19 17:00 93 16 110/60 (77) 99 11/16/19 16:00 96 21 121/64 (83) 99 11/16/19 16:00 Nasal Cannula 3.0 11/16/19 16:00 3.0 11/16/19 16:00 99 11/16/19 16:00 98.0 96 21 121/64 (83) 99 11/16/19 15:00 97 20 128/60 (82) 99 11/16/19 14:00 93 17 126/78 (94) 99 11/16/19 13:00 95 18 130/68 (88) 99 Intake and Output 11/16/19 11/17/19 19:00 07:00 Intake Total 1632.925 ml 70 ml Output Total 800 ml 100 ml Balance 832.925 ml -30 ml Intake Oral 500 ml 40 ml IV Total 1132.925 ml 30 ml Output Urine Total 800 ml Emesis 100 ml # Voids 4 Laboratory Tests 11/17/19 08:05: White Blood Count [Pending], Red Blood Count 4.37L, Hemoglobin 12.9L, Hematocrit 36.9L, Mean Corpuscular Volume 84, Mean Corpuscular Hemoglobin 29.6, Mean Corpuscular Hemoglobin Concent 35.1, Red Cell Distribution Width 11.5L, Platelet Count 245, Mean Platelet Volume 5.6L, Neutrophils (%) (Auto) 70.0, Lymphocytes (%) (Auto) 15.0L, Monocytes (%) (Auto) 5.3, Eosinophils (%) (Auto) 9.0H, Basophils (%) (Auto) 0.8, Lymphocytes [Pending], Percent CD3 Cells [ Pending], Absolute CD3 Count [Pending], Percent CD4 Cells [Pending], Absolute CD4 Count [Pending], T-Lymphocyte CD4/CD8 Ratio [Pending], Percent CD8 Cells [ Pending], Absolute CD8 Count [Pending], HIV-1 RNA (PCR) log10 Value [Pending], HIV-1 RNA Ultraquantitative (PCR) [Pending] 11/17/19 09:03: Arterial Blood pH 7.370, Arterial Blood Partial Pressure CO2 45.1H, Arterial Blood Partial Pressure O2 68.5L, Arterial Blood HCO3 25.5, Arterial Blood Oxygen Saturation 93.7L, Arterial Blood Base Excess -0.1, Jonny Test Positive Height (Feet): 6 Height (Inches): 1.00 Weight (Pounds): 197 General Appearance: WD/WN, no apparent distress, alert EENT: PERRL/EOMI Neck: supple Cardiovascular: normal rate, regular rhythm, no gallop/murmur Respiratory/Chest: lungs clear, normal breath sounds, no respiratory distress Neurologic: alert, oriented x 3 Julian Titus MD Nov 17, 2019 12:56
--- NOTE | 2019-11-17 13:23 | Diagnostic Imaging Report ---
Indication: Shortness of breath Technique: One view of the chest Comparison: 11/15/2019 Findings: There is atelectasis of the left lung base. Lungs and pleural spaces are clear. Interim removal of endotracheal tube. Previously demonstrated hazy parenchymal opacities have largely resolved. Impression: Interim extubation Improved bilateral infiltrates, over 2 days
[2019-11-17] MEDS ORDERED: HYDROcodone/Acetamin 5/325 tab ORAL PRN (15:23)
[2019-11-17 16:00] VITALS: BP 128/89
[2019-11-17 20:00] VITALS: BP 132/75
--- NOTE | 2019-11-17 21:15 | Electroencephalogram ---
DATE OF PROCEDURE: 11/16/2019 REQUESTING PHYSICIAN: Jie Raza M.D. READING PHYSICIAN: Humphrey Cifuentes M.D. PROCEDURE PERFORMED: Electroencephalogram. HISTORY: This EEG was performed on a 34-year-old gentleman with a history of HIV disease, cocaine and marijuana abuse, urinary tract infection, and seizures. The purpose of this EEG was to evaluate the patient for the type of seizure disorder. TECHNICAL NOTE: This EEG was performed on [employer] with electrodes placed on the scalp according to the International 10-20 system. [id number] and fckgl-[id number] montages were used. The EEG was technically satisfactory and was performed in the awake and drowsy states. OBSERVATIONS: In the best awake state, the background activity consisted of 8.5-9 Hz posteriorly predominant well-developed alpha waveforms, which attenuated on eye opening. Drowsiness was characterized by dissolution of the alpha rhythm and the appearance of slower frequencies in the 4-5 Hz theta range. No focal abnormalities or epileptiform discharges were seen. IMPRESSION: Normal awake and drowsy EEG. COMMENT: A normal EEG does not rule out a seizure disorder. Humphrey Cifuentes M.D., M.S.P.H. DR: LEXY JOB#: [id number] MTDD
[2019-11-18] VITALS: BP 136/69
[2019-11-18] MEDS: levETIRAcetam 1,500 MG in D5W 95 ML IV SCH ×2 (01:15→13:21)
[2019-11-18 04:00] VITALS: BP 130/84
[2019-11-18] MEDS: Piperacillin/Tazobactam 3.375 GM in NS 110 ML IVPB SCH ×3 (06:21→22:00)
[2019-11-18 08:00] VITALS: BP 118/70
[2019-11-18] MEDS: Docusate 100mg cap ORAL SCH ×2 (08:44→21:00)
[2019-11-18] MEDS: Thiamine 100mg tab ORAL SCH (08:44)
[2019-11-18] MEDS: Pantoprazole Inj IVP SCH (08:44)
[2019-11-18] MEDS: Heparin 5000 units/ml inj SUBQ SCH ×2 (08:45→21:00)
--- NOTE | 2019-11-18 09:56 | Pulmonology Progress Note ---
Lurdes Chicas [facility]PECT[facility]LO[facility] 11/18/19 0956: Subjective ROS Limited/Unobtainable: No Allergies: Coded Allergies: UNABLE TO ASSESS (Unverified , 11/15/19) Subjective in tele pulse ox stable on RA no SOB, no CP no further seizure activity Objective Last 24 Hour Vital Signs Date Time Temp Pulse Resp B/P (MAP) Pulse Ox O2 Delivery O2 Flow Rate FiO2 11/18/19 04:00 89 11/18/19 04:00 98.8 82 20 130/84 (99) 96 11/18/19 00:00 98.8 85 18 136/69 (91) 95 11/18/19 00:00 84 11/17/19 21:00 Nasal Cannula 1.0 Nasal Cannula 1.0 11/17/19 20:00 90 11/17/19 20:00 98.0 90 18 132/75 (94) 95 11/17/19 16:00 98.1 88 20 128/89 (102) 95 11/17/19 16:00 1.0 11/17/19 16:00 77 11/17/19 12:00 82 11/17/19 12:00 97.8 89 20 133/86 (102) 95 11/17/19 12:00 1.0 11/17/19 12:00 Nasal Cannula 1.0 Nasal Cannula 1.0 11/17/19 11:49 1.0 Intake and Output 11/17/19 11/18/19 19:00 07:00 Intake Total 825 ml 940.0 ml Output Total 700 ml 600 ml Balance 125 ml 340.0 ml Intake Oral 120 ml IV Total 825 ml 820.0 ml Output Urine Total 700 ml 600 ml # Voids 1 1 Objective General Appearance: WD/WN AA male Lines, tubes and drains: peripheral, intact HEENT: normocephalic, atraumatic, anicteric Neck: supple Respiratory/Chest: few isolated rhonchi Abdomen: normal bowel sounds, non tender, soft Extremities: normal capillary refill, no edema Skin Exam: warm/dry, no diaphoresis Neurologic: no gross focal Musculoskeletal: normal muscle bulk Microbiology Date/Time Source Procedure Growth Status 11/15/19 23:45 Blood Blood Culture - Preliminary NO GROWTH AFTER 48 HOURS Resulted 11/15/19 23:30 Blood Blood Culture - Preliminary NO GROWTH AFTER 48 HOURS Resulted 11/16/19 04:45 Nasopharynx Coronavirus COVID-19 PCR ([facility]) - Final Complete Current Medications Medications (Trade) Dose Ordered Sig/Tiffani Route PRN Reason Start Time Stop Time Status Last Admin Dose Admin Acetaminophen/ Hydrocodone Bitart ([place] 5/325) 1 tab Q4H PRN ORAL Moderate Pain (Pain Scale 4-6) 11/17/19 15:23 11/24/19 15:22 11/17/19 18:14 Bisacodyl (Dulcolax) 10 mg DAILYPRN PRN RECTAL Constipation 11/17/19 02:45 02/14/20 02:44 Dextrose (Dextrose 50%) 25 ml Q30M PRN IV Hypoglycemia 11/16/19 21:15 02/14/20 02:44 Dextrose (Dextrose 50%) 50 ml Q30M PRN IV Hypoglycemia 11/16/19 21:15 02/14/20 02:44 Docusate Sodium (Colace) 100 mg EVERY 12 HOURS ORAL 11/16/19 21:00 12/16/19 08:59 11/18/19 08:44 Folic Acid (Folate) 1 mg DAILY ORAL 11/17/19 09:00 12/17/19 08:59 11/18/19 08:43 Heparin Sodium (Porcine) (Heparin 5000 units/ml) 5,000 units Q12HR SUBQ 11/16/19 21:00 12/31/19 08:59 11/18/19 08:45 Levetiracetam 1500 mg/Dextrose 110 ml @ 440 mls/hr Q12H IV 11/17/19 01:00 12/16/19 12:59 11/18/19 01:15 Lorazepam (Ativan 2mg/ml 1ml) 0.5 mg Q4H PRN IV For Anxiety 11/16/19 21:06 11/23/19 21:05 11/17/19 20:46 Magnesium Hydroxide (Mom) 30 ml HSPRN PRN ORAL Constipation 11/17/19 02:45 12/16/19 02:44 Multivitamins (Multivitamins) 1 tab DAILY ORAL 11/17/19 09:00 12/17/19 08:59 11/18/19 08:44 Naloxone HCl (Narcan) 0.4 mg Q3M PRN IVP RR less than 6/min 11/16/19 21:00 02/14/20 02:44 Ondansetron HCl (Zofran) 4 mg Q6H PRN IVP Nausea & Vomiting 11/17/19 05:30 12/17/19 05:29 11/17/19 05:45 Pantoprazole (Protonix) 40 mg DAILY IVP 11/17/19 09:00 12/16/19 08:59 11/18/19 08:44 Piperacillin Sod/ Tazobactam Sod 3.375 gm/Sodium Chloride 110 ml @ 27.5 mls/hr Q8HR IVPB 11/16/19 22:00 11/23/19 13:59 11/18/19 06:21 Polyethylene Glycol (Miralax) 17 gm DAILYPRN PRN ORAL Constipation 11/17/19 02:45 12/16/19 02:44 Sodium Chloride 1,000 ml @ 75 mls/hr [id number] IV 11/16/19 21:00 12/16/19 05:59 11/17/19 20:47 Thiamine HCl (Vitamin B1) 100 mg DAILY ORAL 11/17/19 09:00 12/17/19 08:59 11/18/19 08:44 Assessment/Plan Assessment/Plan ASSESSMENT Acute respiratory failure requiring intubation, s/p extubation Acute toxic metabolic encephalopathy likely due to drug overdose New onset of seizure disorder likely due to drug overdose Suspected COVID-19 infection Aspiration pneumonia ELIDA HIV Substance abuse Elevated AST Protein calorie malnutrition PLAN OF CARE tele s/p extubation 11/15 supplemetnal O2 titrate to keep sat > 90%, pulm toilet SARS COV2 by PCR 11/14 NGT, ] off isolation CXR 11/16 -Improved bilateral infiltrates, over 2 days empiric abx/Zosyn fup with SCX, BCX 11/14 NGTD leuk resolved already, afebrile seizure precautions on Keppra, seizure episode likely was provoked by drug OD no further seizure activity w/drawal precautions MVI/thiamine/ folic acid anxiolytic prn Normal awake and drowsy EEG. However , normal EEG can not rule out seizure disorder Although in this case most likely due to substance abuse awaiting for neuro eval aspiration precautions BSSE dietary recs with protein supplements implemented in plan of care ( per RD high risk for malnutrition) IVF, monitor renal parameters, lytes, correct lytes as needed avoid nephrotoxics , creat trending down trend LFT DVT, GI prophylaxis diagnosed with HIV last e year; never was on any HAART therapy will check CD4 , VL will need to f/up with [facility] to start treatment supportive care probably can go to MS floor; telemetry stable with SR case discussed and evaluated by supervising physician Vickey Castellanos MD 11/18/19 1722: Subjective Allergies: Coded Allergies: UNABLE TO ASSESS (Unverified , 11/15/19) Assessment/Plan Assessment/Plan Patient seen and examined with [facility]. Agree with above A&P as it reflects our joint deliberations. The patient can be switched to oral antibiotics on discharge to complete a course. Can consider Augmentin. We will sign off, please call with any questions. Lurdes Chicas NP Nov 18, 2019 09:56 Vickey Castellanos MD Nov 18, 2019 17:22
[2019-11-18 12:00] VITALS: BP 135/92
--- NOTE | 2019-11-18 14:50 | General Progress Note ---
Assessment/Plan Problem List: (1) Aspiration pneumonia ICD Codes: J69.0 - Pneumonitis due to inhalation of food and vomit SNOMED: 030587692 (2) Seizures ICD Codes: R56.9 - Unspecified convulsions SNOMED: 41837481 (3) Polysubstance abuse ICD Codes: F19.10 - Other psychoactive substance abuse, uncomplicated SNOMED: 794971689 (4) Opioid overdose ICD Codes: T40.2X1A - Poisoning by other opioids, accidental (unintentional), initial encounter SNOMED: 662479165 (5) Seizure-like activity ICD Codes: R56.9 - Unspecified convulsions SNOMED: 139518219 (6) HIV (human immunodeficiency virus infection) ICD Codes: B20 - Human immunodeficiency virus [HIV] disease SNOMED: 09471854 (7) Altered mental status ICD Codes: R41.82 - Altered mental status, unspecified SNOMED: 645980942 (8) Acute respiratory failure ICD Codes: J96.00 - Acute respiratory failure, unspecified whether with hypoxia or hypercapnia SNOMED: 82743110 Status: stable, progressing Assessment/Plan: 34 year old M with PMH of HIV (unknown CD4 or viral load) BIBEMS for seizurelike activity admitted to MICU for AFC requiring intubation and aspiration PNA. #Acute respiratory failure s/p intubation #RLL pneumonia likely Aspiration -s/p extubation 11/15. -Pulm following. appreciate recs. -Diet started -Cont Zosyn (11/15 -). -Likely can d/c home trmw on PO abx. -f/u cultures, BCx NGTD. -wean off O2 -> on O2 now. #?Seizures -unclear etiology of what happened. patient amnesic to event, but no hx of prior seizures. -s/p keppra load -Cont keppra. will need outpatient f/u. -EEG neg. -seizure precautions #HIV -CD4/VL pending -restart HAART once verified #Cocaine and marijuana use -SW consult -thiamine. -consider psych consult if needed #ELIDA -improving. -continue NS at 75mL/hr. -continue PO intake. Dispo: home Reason for Continued Hospitalization: ams. ARF 36 minutes spent on this encounter. Discussed with RN at bedside and consultants named above. 25 spent on counseling and care coordination. Time of note may not reflect time patient was seen. Subjective Date patient seen: Nov 18, 2019 ROS Limited/Unobtainable: No Constitutional: Denies: no symptoms, chills, diaphoresis, fever, malaise, weakness, other HEENT: Denies: no symptoms, eye pain, blurred vision, tearing, double vision, ear pain, ear discharge, nose pain, nose congestion, throat pain, throat swelling, mouth pain, mouth swelling, other Cardiovascular: Denies: no symptoms, chest pain, edema, irregular heart rate, lightheadedness, palpitations, syncope, other Respiratory: Denies: no symptoms, cough, orthopnea, shortness of breath, SOB with excertion, SOB at rest, sputum, stridor, wheezing, other Gastrointestinal/Abdominal: Denies: no symptoms, abdomen distended, abdominal pain, black stools, tarry stools, blood in stool, constipated, diarrhea, difficulty swallowing, nausea, poor appetite, poor fluid intake, rectal bleeding , vomiting, other Genitourinary: Denies: no symptoms, burning, discharge, frequency, flank pain, hematuria, incontinence, pain, urgency, other Neurologic/Psychiatric: Denies: no symptoms, anxiety, depressed, emotional problems, headache, numbness, paresthesia, pre-existing deficit, seizure, tingling, tremors, weakness, other Endocrine: Denies: no symptoms, excessive sweating, flushing, intolerance to cold, intolerance to heat, increased hunger, increased thirst, increased urine, unexplained weight gain, unexplained weight loss, other Hematologic/Lymphatic: Denies: no symptoms, anemia, easy bleeding, easy bruising, other Allergies: Coded Allergies: UNABLE TO ASSESS (Unverified , 11/15/19) All Systems: reviewed and negative except above Subjective resting in bed, complaining of back pain. no respiratory symptoms, such as cough , SOB. no chest pain. no seizure. Objective Last 24 Hour Vital Signs Date Time Temp Pulse Resp B/P (MAP) Pulse Ox O2 Delivery O2 Flow Rate FiO2 11/18/19 12:00 98.8 76 18 135/92 (106) 95 11/18/19 12:00 72 11/18/19 09:00 Nasal Cannula 1.0 Nasal Cannula 1.0 11/18/19 08:00 100 11/18/19 08:00 98.6 82 18 118/70 (86) 97 11/18/19 04:00 89 11/18/19 04:00 98.8 82 20 130/84 (99) 96 11/18/19 00:00 98.8 85 18 136/69 (91) 95 11/18/19 00:00 84 11/17/19 21:00 Nasal Cannula 1.0 Nasal Cannula 1.0 11/17/19 20:00 90 11/17/19 20:00 98.0 90 18 132/75 (94) 95 11/17/19 16:00 98.1 88 20 128/89 (102) 95 11/17/19 16:00 1.0 11/17/19 16:00 77 Intake and Output 11/17/19 11/18/19 19:00 07:00 Intake Total 825 ml 940.0 ml Output Total 700 ml 600 ml Balance 125 ml 340.0 ml Intake Oral 120 ml IV Total 825 ml 820.0 ml Output Urine Total 700 ml 600 ml # Voids 1 1 Height (Feet): 6 Height (Inches): 1.00 Weight (Pounds): 199 General Appearance: no apparent distress, alert EENT: PERRL/EOMI Neck: supple Cardiovascular: normal rate, regular rhythm Respiratory/Chest: lungs clear, normal breath sounds, no respiratory distress Abdomen: non tender, soft Neurologic: alert, oriented x 3 Julian Titus MD Nov 18, 2019 14:50
[2019-11-18 16:00] VITALS: BP 140/97
[2019-11-18 20:00] VITALS: BP 133/90
[2019-11-19] VITALS: BP 145/88
[2019-11-19] MEDS: levETIRAcetam 1,500 MG in D5W 95 ML IV SCH (01:00)
[2019-11-19 04:00] VITALS: BP 150/90
[2019-11-19] MEDS: Piperacillin/Tazobactam 3.375 GM in NS 110 ML IVPB SCH (05:52)
[2019-11-19 07:26] LABS: EOSINOPHILS % (AUTO) 16.2 % (0.0-3.0); HEMATOCRIT 37.6 % (42.0-52.0); HEMOGLOBIN 13.4 G/DL (14.2-18.0); LYMPHOCYTES % (AUTO) 28.9 % (20.0-45.0); MEAN CORPUSCULAR VOLUME 84 FL (80-99); MONOCYTES % (AUTO) 5.8 % (1.0-10.0); NEUTROPHILS % (AUTO) 48.3 % (45.0-75.0); PLATELET COUNT 261 K/UL (150-450); RED BLOOD COUNT 4.49 M/UL (4.70-6.10); RED CELL DISTRIBUTION WIDTH 11.1 % (11.6-14.8); WHITE BLOOD COUNT 4.3 K/UL (4.8-10.8)
[2019-11-19 07:38] LABS: BLOOD UREA NITROGEN 9 mg/dL (7-18); CALCIUM 8.4 MG/DL (8.5-10.1); CARBON DIOXIDE 27 MMOL/L (21-32); CREATININE 1.2 MG/DL (0.55-1.30)
[2019-11-19 07:44] LABS: CHLORIDE 104 MMOL/L (98-107); POTASSIUM 3.5 MMOL/L (3.5-5.1); SODIUM 140 MMOL/L (136-145)
[2019-11-19 08:00] VITALS: BP 136/95
[2019-11-19] MEDS: Thiamine 100mg tab ORAL SCH (09:00)
[2019-11-19] MEDS: Heparin 5000 units/ml inj SUBQ SCH (09:01)
[2019-11-19] MEDS: Docusate 100mg cap ORAL SCH (09:02)
[2019-11-19] MEDS: Pantoprazole Inj IVP SCH (09:02)
[2019-11-19 12:00] VITALS: BP 141/96
[2019-11-19] MEDS ORDERED: AUGMENTIN 875-1 EAC1 ORAL (12:51)
[2019-11-19] MEDS ORDERED: KEPPRA500 M4 ORAL (12:52)
[2019-11-19] MEDS ORDERED: BACITRACIN1 EACH TOPIC (12:53)
[2019-11-19] MEDS ORDERED: levETIRAcetam 1,000mg/NS100ml IVPB SCH (13:00)
[2019-11-19] MEDS ORDERED: levETIRAcetam 500mg/NS100ml IVPB SCH (13:00)
--- NOTE | 2019-12-11 20:45 | Discharge Summary ---
Discharge Summary Hospital Course Date of Admission Nov 16, 2019 at 00:20 Date of Discharge Nov 19, 2019 at 13:54 Admitting Diagnosis Acute Respiratory Failure, Seizures HPI Demetris Beaulieu is a 34 year old male who was admitted on Nov 16, 2019 at 00:20 for Acute Respiratory Failure/Seizures Consultations pulm Hospital Course 34 year old M with PMH of HIV (unknown CD4 or viral load) BIBEMS for seizurelike activity admitted to MICU for AFC requiring intubation and aspiration PNA. Was extubated the next day, and was monitored on antibiotics for likely aspiration PNA. Was loaded on Keppra and continued for possible seizure episode but history unclear. ELIDA improved with IVF. Patient being d/c' ed home on augmentin. #Acute respiratory failure s/p intubation #RLL pneumonia likely Aspiration -s/p extubation 11/15. -Pulm following. appreciate recs. -Diet started -Cont Zosyn (11/15 -). -Likely can d/c home trmw on PO abx. -f/u cultures, BCx NGTD. -wean off O2 -> on O2 now. #?Seizures -unclear etiology of what happened. patient amnesic to event, but no hx of prior seizures. -s/p keppra load -Cont keppra. will need outpatient f/u. -EEG neg. -seizure precautions #HIV -CD4/VL pending -restart HAART once verified #Cocaine and marijuana use - consult -thiamine. -consider psych consult if needed #ELIDA -improving. -continue NS at 75mL/hr. -continue PO intake. Dispo: home Reason for Continued Hospitalization: ams. ARF 36 minutes spent on this encounter. Discussed with RN at bedside and consultants named above. 25 spent on counseling and care coordination. Time of note may not reflect time patient was seen. Discharge Condition Upon Discharge: stable Discharge Disposition Patient was discharged to home Discharge Diagnoses: (1) Respiratory failure requiring intubation (2) Aspiration pneumonia (3) HIV (human immunodeficiency virus infection) Julian Titus MD Dec 11, 2019 20:45
== END 2019-11-19 13:54 | disposition home or self-care (01) | DRG 917 ==
LOC: EDBD 23:07 → EMR 23:44 → EDBD 23:44 → ICU 11-16 00:20 → EDBEDREQ 11-16 02:21 → 2E 11-16 20:30
PROC: 5A1935Z Respiratory Ventilation, Less than 24 Consecutive Hours (ICD-10-PCS; principal; 2019-11-16)
PROC: 0BH17EZ Insertion of Endotracheal Airway into Trachea, Via Natural or Artificial Opening (ICD-10-PCS; principal; 2019-11-16)
DX: T40.2X1A Poisoning by other opioids, accidental (unintentional), initial encounter (principal); J96.00 Acute respiratory failure, unspecified whether with hypoxia or hypercapnia; J69.0 Pneumonitis due to inhalation of food and vomit; G92 Toxic encephalopathy; N17.9 Acute kidney failure, unspecified; E46 Unspecified protein-calorie malnutrition; R56.9 Unspecified convulsions; F19.10 Other psychoactive substance abuse, uncomplicated; F14.90 Cocaine use, unspecified, uncomplicated; F12.90 Cannabis use, unspecified, uncomplicated; Y92.009 Unspecified place in unspecified non-institutional (private) residence as the place of occurrence of the external cause; Z20.828 Contact with and (suspected) exposure to other viral communicable diseases
CPT/HCPCS: 31500; 36415; 36600; 70450; 71045; 80048; 80053; 80307; 81003; 82803; 82962; 83605; 85007; 85025; 86360; 86850; 86900; 86901; 87040; 87081; 87536; 93005; 94002; 94664; 95819; 96361; 96374; 99291; G0480; J2405; J7030